=== PATIENT | female | born 1985 | race Two or more races ===

== ENCOUNTER 2022-06-27 17:12 | Inpatient (IN) | payer MEDICAID ==
[~2022-06-27] VITALS: Ht 165.1 cm; Wt 59.0 kg
[2022-06-27 18:33] LABS: BASOPHILS % 0.3 % (0.0-2.0); EOSINOPHILS % 0.1 % (0.0-5.0); HEMATOCRIT. 42.2 % (36.0-48.0); LYMPHOCYTES % 29.5 % (20.0-50.0); MEAN CORPUSCULAR HEMOGLOBIN 26.9 pg (28.0-32.0); MEAN CORPUSCULAR VOLUME 81.1 fL (81.0-99.0); MEAN PLATELET VOLUME 8.8 fl (7.4-10.4); MONOCYTES % 7.4 % (2.0-8.0); NEUTROPHILS % 62.7 % (40.0-76.0); PLATELET 239 x1000/uL (130-400); RED CELL DISTRIBUTION WIDTH 13.8 % (11.6-14.6)
[2022-06-27 18:42] LABS: CHLORIDE 106 mEq/L (98-107)
[2022-06-27 18:45] LABS: PROTHROMBIN TIME 11.1 sec (9.6-11.0)
[2022-06-27 21:25] LABS: HEMATOCRIT 38.8 % (36.0-48.0); HEMOGLOBIN 12.7 g/dL (12.0-16.0); MEAN CORPUSCULAR HEMOGLOBIN 26.8 pg (28.0-32.0); MEAN CORPUSCULAR VOLUME 81.5 fL (81.0-99.0); PLATELET 235 x1000/uL (130-400); RED BLOOD CELL COUNT 4.76 mill/uL (4.2-5.4); RED CELL DISTRIBUTION WIDTH 13.5 % (11.6-14.6)
[2022-06-27 21:34] LABS: CHLORIDE 104 mEq/L (98-107); HCG SCREEN NEGATIVE
[2022-06-27 21:34] LABS: CLARITY URINE CLOUDY (CLEAR); COLOR URINE YELLOW (YELLOW); KETONES URINE TRACE (NEGATIVE); LEUKOCYTE ESTERASE URINE 1+ (NEGATIVE); NITRITE URINE NEGATIVE (NEGATIVE); OCCULT BLOOD URINE TRACE (NEGATIVE); PROTEIN URINE TRACE (NEGATIVE); SPECIFIC GRAVITY URINE 1.023 (1.005-1.030); UROBILINOGEN URINE 0.2 E.U./dL (0.2-1.0)
[2022-06-27 21:47] LABS: *BARBITURATES SCREEN URINE NEGATIVE (NEGATIVE); *COCAINE SCREEN URINE NEGATIVE (NEGATIVE); CANNABINOID URINE SCREEN NEGATIVE (NEGATIVE); METHADONE URINE SCREEN NEGATIVE (NEGATIVE); OPIATES URINE SCREEN NEGATIVE (NEGATIVE)
[2022-06-27 22:06] LABS: *AMPHETAMINES SCREEN URINE PRESUMTIVE POSITIVE (NEGATIVE); *BENZODIAZEPINES SCREEN URINE PRESUMTIVE POSITIVE (NEGATIVE); PHENCYCLIDINE URINE SCREEN PRESUMTIVE POSITIVE (NEGATIVE)
[2022-06-27] MEDS ORDERED: LORAZEPAM 1MG TABLET PO ONE (22:15)
[2022-06-28] MEDS ORDERED: DEXAMETHASONE 4MG TABLET PO ONE (00:15)
[2022-06-28] MEDS ORDERED: IPRATROPIUM/ALBUTEROL 0.5-3(2.5)MG/3ML NEB HHN ONE (00:15)
[2022-06-28] MEDS ORDERED: DEXAMETHASONE 10 MG/ML VIAL IV ONE (00:45)
[2022-06-28] MEDS ORDERED: DEXAMETHASONE 2MG TABLET PO NR (00:45)
[2022-06-28] MEDS ORDERED: ONDANSETRON HCL 4MG/2ML INJ IV ONE (00:45)
[2022-06-28] MEDS ORDERED: SODIUM CHLORIDE 0.9% 1,000 ML IV ONE ×4 (00:45→18:00)
[2022-06-28] MEDS ORDERED: LORAZEPAM 0.5MG TABLET PO ONE (04:30)
[2022-06-28] MEDS ORDERED: LORAZEPAM 2MG/ML CPJ IV ONE (04:45)
[2022-06-28] MEDS ORDERED: OLANZAPINE 10 MG/VIAL IM ONE ×2 (10:00→12:15)
[2022-06-28] MEDS ORDERED: MIDAZOLAM HCL 2 MG/2 ML VIAL IM ONE ×2 (10:00→12:15)
[2022-06-28] MEDS ORDERED: OLANZAPINE 10 MG/VIAL IM NR (16:00)
[2022-06-28] MEDS ORDERED: MIDAZOLAM HCL 2 MG/2 ML VIAL IM NR (16:00)
[2022-06-28] MEDS: OLANZAPINE 5MG TABLET ODT PO SCH (17:55)
[2022-06-28] MEDS ORDERED: HALOPERIDOL LACTATE 5MG/ML VIAL IM ONE (19:30)
[2022-06-28] MEDS ORDERED: LORAZEPAM 2MG/ML CPJ IM ONE (19:30)
[2022-06-28] MEDS: DILTIAZEM HCL 5MG/ML 5ML VIAL IV ONE ×2 (22:33→23:12)
[2022-06-28] MEDS ORDERED: DILTIAZEM HCL 5MG/ML 25ML VIAL IV NR (22:45)
[2022-06-28] MEDS ORDERED: DILTIAZEM HCL 125 MG in DEXT 5% WATER 100 ML IV ONE (23:30)
[2022-06-28] MEDS ORDERED: DILTIAZEM HCL 125 MG in DEXT 5% WATER 100 ML IV NR (23:45)
[2022-06-29] MEDS ORDERED: DILTIAZEM HCL 5MG/ML 5ML VIAL IV ONE
[2022-06-29] MEDS: OLANZAPINE 5MG TABLET ODT PO SCH (09:46)
[2022-06-29 09:47] VITALS: BP 110/65
[2022-06-29] MEDS ORDERED: ACETAMINOPHEN 325MG TABLET PO PRN (11:00)
[2022-06-29] MEDS ORDERED: ONDANSETRON HCL 4MG/2ML INJ IV PRN (11:00)
== END 2022-06-29 15:22 | disposition left against medical advice (07) | DRG 751 ==
LOC: ER 17:12 → EDBEDREQTM 06-28 → EDBEDREQ 06-28 → EDBEDREQSVC 06-28 → MICUSO 06-28 23:55
PROVIDERS: ADMIT Internal Medicine; ATTEND Internal Medicine
DX: F29 Unspecified psychosis not due to a substance or known physiological condition (principal); F15.10 Other stimulant abuse, uncomplicated; F32.A Depression, unspecified; Z20.822 Contact with and (suspected) exposure to COVID-19; F17.210 Nicotine dependence, cigarettes, uncomplicated; Z53.29 Procedure and treatment not carried out because of patient's decision for other reasons; Z78.1 Physical restraint status
CPT/HCPCS: 36415; 80053; 80305; 80307; 80320; 80329; 81003; 84484; 84703; 85025; 85027; 85379; 87426; 94640; 99285; C9803; J8540; G0480

== ENCOUNTER 2022-07-16 00:22 | Emergency (ER) | payer MEDICAID ==
[~2022-07-16] VITALS: Ht 167.6 cm; Wt 59.0 kg
[2022-07-16 00:24] VITALS: BP 136/82
== END 2022-07-16 08:10 | disposition left against medical advice (07) ==
LOC: ER 00:29
DX: Z53.21 Procedure and treatment not carried out due to patient leaving prior to being seen by health care provider (principal)
CPT/HCPCS: 99281